=== PATIENT | male | born 1985 | race Caucasian/White ===

== ENCOUNTER 2018-08-03 10:38 | Inpatient (IN) | payer OTHER ==
[~2018-08-03] VITALS: Ht 180.3 cm; Wt 74.2 kg
[2018-08-03] MEDS ORDERED: SODIUM CHLORIDE 0.9% 50 ML IV ONE (11:08)
[2018-08-03 11:18] LABS: BASOPHILS % (AUTO) 0.5 % (0.0-5.0); EOSINOPHILS % (AUTO) 2.5 % (0.0-8.0); HEMATOCRIT 35.7 % (42-54); LYMPHOCYTES % (AUTO) 22.9 % (21.0-51.0); MEAN CORPUSCULAR HEMOGLOBIN 27.8 pg (27.0-33.0); MEAN CORPUSCULAR HGB CONC 32.6 g/dL (32.0-36.0); MEAN CORPUSCULAR VOLUME 85.4 fL (79-99); MONOCYTES % (AUTO) 12.3 % (3.0-13.0); NEUTROPHILS % (AUTO) 61.8 % (40.0-77.0); NUCLEATED RED BLOOD CELLS 0.1 % (0.0-0.19); PLATELET COUNT (AUTO) 438 K/uL (130-400); RED BLOOD CELL COUNT(AUTO) 4.18 MIL/uL (4.50-6.20); RED CELL DISTRIBUTION WIDTH 14.3 % (11.0-15.5); WHITE BLOOD COUNT (AUTO) 8.4 K/uL (4.8-10.8)
[2018-08-03 11:34] LABS: B-TYPE NATRIURETIC PEPTIDE 10 pg/mL (0-100)
[2018-08-03 11:39] LABS: BILIRUBIN,TOTAL 0.2 mg/dL (0.2-1.0); CREATININE 0.9 mg/dL (0.5-1.5); POTASSIUM 3.9 mmol/L (3.5-5.1); TOTAL PROTEIN, SERUM 8.1 g/dL (6.0-8.3)
[2018-08-03 11:46] LABS: BILIRUBIN,URINE Negative (NEGATIVE); COLOR,URINE Yellow (YELLOW); GLUCOSE, URINE (UA) Negative (NEGATIVE); KETONES,URINE Negative (NEGATIVE); LEUKOCYTE ESTERASE ,URINE Negative (NEGATIVE); NITRATE,URINE Negative (NEGATIVE); OCCULT BLOOD,URINE Negative (NEGATIVE); PH,URINE 6.5 (5.0-8.0); PROTEIN,URINE Negative (NEGATIVE)
[2018-08-03 11:47] LABS: APPEARANCE,URINE CLEAR (CLEAR)
[2018-08-03 11:55] LABS: AMPHET/METH SCREEN,URINE POSITIVE (NEGATIVE); BARBITURATE SCREEN, URINE NEGATIVE (NEGATIVE); BENZODIAZEPINES SCREEN,URINE NEGATIVE (NEGATIVE); CANNABINOID SCREEN,URINE NEGATIVE (NEGATIVE); COCAINE SCREEN,URINE POSITIVE (NEGATIVE); OPIATE SCREEN,URINE POSITIVE (NEGATIVE); PHENCYCLIDINE SCREEN,URINE NEGATIVE (NEGATIVE)
[2018-08-03] MEDS ORDERED: VANCOMYCIN 1GM+NS 250ML 250 ML IV ONE ×3 (12:11→17:40)
[2018-08-03] MEDS ORDERED: VANCOMYCIN PROTOCOL PER PHARMACY IV PRN (16:30)
[2018-08-03] MEDS ORDERED: ONDANSETRON HCL 4 MG/2 ML VIAL IV PRN (16:30)
[2018-08-03] MEDS ORDERED: HYDRALAZINE HCL 20 MG/ML VIAL IV PRN (16:30)
[2018-08-03] MEDS ORDERED: ACETAMINOPHEN 325 MG TAB PO PRN (16:30)
[2018-08-03] MEDS ORDERED: COMPOUND IV REFRIGERATED 1 EACH IVSOLN MISC PRN ×2 (16:45→17:00)
[2018-08-03] MEDS ORDERED: VANCOMYCIN 2 GM in SODIUM CHLORIDE 0.9% 500ML 500 ML IV ONE (17:00)
[2018-08-03] MEDS ORDERED: SODIUM CHLORIDE 0.9% 1000ML 1,000 ML IV ONE (17:39)
[2018-08-03] MEDS ORDERED: ONDANSETRON HCL 4 MG/2 ML VIAL ONE (18:11)
[2018-08-03] MEDS ORDERED: MORPHINE SULFATE 2 MG/ML 1ML SYG ONE (18:11)
[2018-08-03 19:26] VITALS: BP 128/70
[2018-08-03] MEDS: FAMOTIDINE/PF 20 MG/2 ML VIAL IV SCH (22:38)
[2018-08-03] MEDS: SODIUM CHLORIDE 0.9% 1000ML 1,000 ML IV SCH ×2 (22:38→23:17)
[2018-08-03] MEDS: ZOSYN 3.375GM+NS 50ML 50 ML IV SCH (22:38)
[2018-08-04] MEDS ORDERED: VANCOMYCIN 1GM+NS 250ML 250 ML IV ONE (00:05)
[2018-08-04] MEDS: MORPHINE SULFATE 2 MG/ML 1ML SYG IV PRN (00:10)
[2018-08-04 00:22] VITALS: BP 118/69
[2018-08-04] MEDS: VANCOMYCIN 1.25 GM in SODIUM CHLORIDE 0.9% 250 ML IV SCH ×3 (01:04→21:04)
--- NOTE | 2018-08-04 04:20 | NUR ---
POOR IV ACCESS Iv from ER got infiltrated,pt has poor iv access.Attempts to insert a new iv x 3 nurses.Pt refused morning labs,signed refusal form.
[2018-08-04 04:40] VITALS: BP 119/70
[2018-08-04] MEDS: ZOSYN 3.375GM+NS 50ML 50 ML IV SCH ×3 (05:19→21:04)
[2018-08-04] MEDS: SODIUM CHLORIDE 0.9% 1000ML 1,000 ML IV SCH (07:45)
[2018-08-04 08:09] VITALS: BP 123/85
[2018-08-04] MEDS: FAMOTIDINE/PF 20 MG/2 ML VIAL IV SCH ×2 (11:48→21:03)
[2018-08-04] MEDS: FUROSEMIDE 10 MG/ML 2ML VIAL IV SCH ×2 (11:49→21:03)
[2018-08-04] MEDS: ENOXAPARIN SODIUM 40 MG/0.4 ML SYRINGE SQ SCH (11:49)
[2018-08-04 12:31] VITALS: BP 115/72
--- NOTE | 2018-08-04 15:04 | NUR ---
DCP CM met with pt discussed dc plans. Pt is independent prior to admission, lives at home alone, has a friend that lives close by and visits pt daily. Denies any equipments/services. Pt feels safe to go back home, still drives, friend able to assist with transportation as necessary. Pt is a self pay, states currently does not follow a pcp, given [facility], [facility] assisting pt. DC plan to home once stable. CM to cont to follow up. Addendum: 08/04/18 at 1506 by MARYJANE FERNANDEZ LVN CM Amended: Links added.
[2018-08-04 16:00] VITALS: BP 122/86
--- NOTE | 2018-08-04 16:48 | NUR ---
[facility] CONSULT PATIENT ASSESSED ORDERED: PATIENT PRESENTS WITH CELLULITIS TO BLE, NO OPEN WOUNDS NOTED; NO WOUND CARE RECOMMENDATIONS SUBMITTED AT THIS TIME; REQUEST FOR DR. MCKEON CONSULT SUBMITTED. Addendum: 08/04/18 at 1653 by JON HENRY LVN LVN W Amended: Links added.
[2018-08-04 19:35] VITALS: BP 130/73
[2018-08-05 00:54] VITALS: BP 122/88
[2018-08-05] MEDS: MORPHINE SULFATE 2 MG/ML 1ML SYG IV PRN (03:53)
[2018-08-05 04:50] VITALS: BP 133/72
[2018-08-05] MEDS: ZOSYN 3.375GM+NS 50ML 50 ML IV SCH (05:19)
[2018-08-05 07:00] VITALS: BP 109/66
[2018-08-05] MEDS: FAMOTIDINE/PF 20 MG/2 ML VIAL IV SCH (08:45)
[2018-08-05] MEDS: VANCOMYCIN 1.25 GM in SODIUM CHLORIDE 0.9% 250 ML IV SCH (08:45)
[2018-08-05] MEDS: ENOXAPARIN SODIUM 40 MG/0.4 ML SYRINGE SQ SCH (08:45)
[2018-08-05] MEDS: FUROSEMIDE 10 MG/ML 2ML VIAL IV SCH (08:46)
[2018-08-05 08:57] LABS: MEAN CORPUSCULAR HEMOGLOBIN 28.4 pg (27.0-33.0); PLATELET COUNT (AUTO) 481 K/uL (130-400); RED BLOOD CELL COUNT(AUTO) 4.53 MIL/uL (4.50-6.20); RED CELL DISTRIBUTION WIDTH 14.2 % (11.0-15.5); WHITE BLOOD COUNT (AUTO) 7.8 K/uL (4.8-10.8)
[2018-08-05 09:05] LABS: CREATININE 0.9 mg/dL (0.5-1.5); POTASSIUM 4.2 mmol/L (3.5-5.1)
[2018-08-05] MEDS ORDERED: SULF1TAB42 PO (10:14)
[2018-08-05] MEDS ORDERED: FURO20TA4 PO (10:14)
[2018-08-05 11:00] VITALS: BP 108/75
== END 2018-08-05 12:00 | disposition home or self-care (01) | DRG 603 ==
LOC: EDH 10:38 → EDHIP 10:39 → 3DH 19:33
PROVIDERS: ADMIT Hospitalist; ATTEND Hospitalist
DX: L03.115 Cellulitis of right lower limb (principal); L03.116 Cellulitis of left lower limb; F19.10 Other psychoactive substance abuse, uncomplicated
CPT/HCPCS: 36415; 71045; 73590; 80048; 80053; 80202; 80305; 81003; 83605; 83880; 84484; 85025; 85027; 87040; 93005; 93970; G0378; J1650; J1940; J2405; J2543; J3370; J3490; J7030; J7040